=== PATIENT | female | born 1990 | race Caucasian/White ===

== ENCOUNTER → 2018-02-25 | Outpatient (CLI) | payer BC ==
[~2018-02-25] MED LIST: AZIT250 PO; CRUTCH3 USE; CRUTCH4 USE; DIPH50; DIPH50 PO; ESOM20; GABA300 PO; HYDACE5 PO; HYDACE7.5; HYDMOR2; HYDMOR2 PO; IBUP600 PO; IBUP800 PO; LORA1 PO; MAGCIT300 PO; MIDOL; NAPR500 PO; ONDA8ODT MM; OXYACE5T; OXYACE5T PO; OXYACE7.5T PO; OXYC10ER PO; PROACE100 PO; PROM25 PO; Percocet 5-3251 EACH PO; RXCLIN PO; RXONDA4ODT MM; RXOXYACE PO; TRAM50 PO; Zantac150 MG PO; Zofran Odt8 MG SL; [UNRECOGNIZED DRUG - CODE]
== END ==
LOC: LAB EV 18:02 → LAB SHORT 18:02
DX: N61.1 Abscess of the breast and nipple (principal)
CPT/HCPCS: 87070; 87075; 87205

== ENCOUNTER 2019-10-13 19:48 | Emergency (ER) | payer OTHER ==
[~2019-10-13] VITALS: Ht 170.2 cm; Wt 136.1 kg
[2019-10-13] MEDS ORDERED: PRENATAL TABLE1 EAC2 PO (20:09)
[2019-10-13] MEDS ORDERED: Zithromax250 MG PO (21:13)
== END 2019-10-13 21:45 | disposition home or self-care (01) ==
LOC: ER 19:48
DX: O91.212 Nonpurulent mastitis associated with pregnancy, second trimester (principal); Z88.0 Allergy status to penicillin; Z88.1 Allergy status to other antibiotic agents; Z3A.26 26 weeks gestation of pregnancy
CPT/HCPCS: 99282

== ENCOUNTER 2020-01-02 14:45 | Inpatient (IN) | payer BC, OTHER ==
[~2020-01-02] VITALS: Ht 170.2 cm; Wt 152.7 kg
[~2020-01-02 14:45] MED LIST changes: -BUSP10 PO; -ENOX40I SC; -FERSU300 PO; -LABE100 PO; -NIFE60ER PO
[2020-01-02 15:47] LABS: BASOPHILS ABSOLUTE AUTO 0.02 K/mm3 (0.00-0.23); BASOPHILS PERCENT AUTO 0 % (0-2); EOSINOPHILS PERCENT AUTO 1 % (0-6); Hematocrit 35.3 % (33.0-51.0); Hemoglobin 11.7 g/dL (11.5-16.0); IMMATURE GRAN ABSOLUTE AUTO 0.06 K/mm3 (0.00-0.10); IMMATURE GRAN PERCENT AUTO 0 % (0-1); LYMPHOCYTES ABSOLUTE AUTO 2.46 K/mm3 (0.84-5.20); LYMPHOCYTES PERCENT AUTO 16 % (21-46); MONOCYTES ABSOLUTE AUTO 0.88 K/mm3 (0.16-1.47); MONOCYTES PERCENT AUTO 6 % (4-13); Mean Corpuscular HGB 29.2 pg (26.0-34.0); Mean Corpuscular HGB Conc 33.1 g/dL (31.5-36.5); Mean Corpuscular Volume 88 fL (80-100); Mean Platelet Volume 11.4 fL (9.1-12.4); NEUTROPHILS ABSOLUTE AUTO 12.27 K/mm3 (1.96-9.15); NEUTROPHILS PERCENT AUTO 77 % (41-73); Platelet Count 234 K/mm3 (150-400); RDW Coefficient Variation 12.8 % (11.7-14.2); RDW Standard Deviation 41.1 fL (35.1-46.3); Red Blood Cell Count 4.01 M/mm3 (3.80-5.20); White Blood Cell Count 15.89 K/mm3 (4.00-11.30)
[2020-01-02 16:11] LABS: Alanine Aminotransfer (ALT/SGP 13 U/L (12-78); Albumin, Blood 2.3 g/dL (3.4-5.0); Albumin/Globulin Ratio 0.5 (0.8-1.8); Alk Phos 102 U/L (50-136); Anion Gap 8 mmol/L (6-16); Aspartate Aminotrans (AST/SGOT 12 U/L (12-37); Bilirubin, Total 0.1 mg/dL (0.1-1.0); Blood Urea Nitrogen 9 mg/dL (8-24); Bun/Creatinine Ratio 12.9 (12.0-20.0); CO2, Blood 22 mmol/L (21-32); Calcium, Blood 8.4 mg/dL (8.5-10.1); Chloride, Blood 108 mmol/L (98-108); Globulin, Blood 4.2 g/dL (2.2-4.0); Glomerular Filtration Rate >60 (60-); Glucose, Blood 102 mg/dL (70-99); Potassium, Blood 3.7 mmol/L (3.5-5.5); Sodium, Blood 138 mmol/L (136-145); Total Protein, Blood 6.5 g/dL (6.4-8.2)
--- NOTE | 2020-01-02 19:51 | NUR ---
SENT OVER FROM OFFICE AFTER NONREACTIVE NST. REACTIVE NST HER ON UNIT. BP'S ELEVATED, LABS DRAWN, ADMITTED FOR CYTOTEC INDUCTION
[2020-01-02] MEDS ORDERED: FERSU300 PO (20:24)
--- NOTE | 2020-01-03 07:03 | NUR ---
PT DECLINES BEDSIDE REPORT THIS MORNING, SHE WANTS TO SLEEP FOR A FEW MORE MINUTES IF SHE CAN
--- NOTE | 2020-01-03 10:39 | NUR ---
PER FLOOR RN, PT HAS BILATERAL MASTITIS, PER CARETAKER GROUNDS ULTRASOUND REVEALED BILATERAL CELLULITIS. RN ROUNDED TO TALK WITH PT ABOUT BRF PLAN. RN INSTRUCTED PT IN MAKING SURE LATCH IS CORRECT AND BREAST MASSAGE WHILE BRF AND IN WARM SHOWER. MOTHER VERBALIZED UNDERSTANDING. SO BRINGING IN PUMP TO HAVE ON HAND IF NEEDED. PT INSTRUCTED TO FOCUS ON CORRECT AND EFFECTIVE LATCHING OF NB BEFORE PUMPING TO MAKE SURE PROLONGED ENGORGEMENT DOES NOT ULTIMATELY AFFECT BRF. RN WILL ROUND AGAIN AFTER OF NB TO HELP/DEMO WITH CORRECT LATCHING AND POSITIONING.
[2020-01-03 20:34] LABS: Vancomycin, Trough 17.8 ug/mL (5.0-10.0)
[2020-01-03 21:31] LABS: BASOPHILS ABSOLUTE AUTO 0.03 K/mm3 (0.00-0.23); BASOPHILS PERCENT AUTO 0 % (0-2); EOSINOPHILS ABSOLUTE AUTO 0.13 K/mm3 (0.00-0.68); EOSINOPHILS PERCENT AUTO 1 % (0-6); Hematocrit 35.8 % (33.0-51.0); Hemoglobin 11.7 g/dL (11.5-16.0); IMMATURE GRAN ABSOLUTE AUTO 0.06 K/mm3 (0.00-0.10); IMMATURE GRAN PERCENT AUTO 0 % (0-1); LYMPHOCYTES ABSOLUTE AUTO 2.54 K/mm3 (0.84-5.20); LYMPHOCYTES PERCENT AUTO 17 % (21-46); MONOCYTES ABSOLUTE AUTO 0.92 K/mm3 (0.16-1.47); MONOCYTES PERCENT AUTO 6 % (4-13); Mean Corpuscular HGB 29.2 pg (26.0-34.0); Mean Corpuscular HGB Conc 32.7 g/dL (31.5-36.5); Mean Corpuscular Volume 89 fL (80-100); Mean Platelet Volume 12.2 fL (9.1-12.4); NEUTROPHILS ABSOLUTE AUTO 11.47 K/mm3 (1.96-9.15); NEUTROPHILS PERCENT AUTO 76 % (41-73); Platelet Count 240 K/mm3 (150-400); RDW Coefficient Variation 13.1 % (11.7-14.2); RDW Standard Deviation 42.8 fL (35.1-46.3); Red Blood Cell Count 4.01 M/mm3 (3.80-5.20); White Blood Cell Count 15.15 K/mm3 (4.00-11.30)
[2020-01-05 05:23] LABS: BASOPHILS ABSOLUTE AUTO 0.05 K/mm3 (0.00-0.23); BASOPHILS PERCENT AUTO 0 % (0-2); EOSINOPHILS ABSOLUTE AUTO 0.01 K/mm3 (0.00-0.68); EOSINOPHILS PERCENT AUTO 0 % (0-6); Hemoglobin 10.6 g/dL (11.5-16.0); IMMATURE GRAN ABSOLUTE AUTO 0.25 K/mm3 (0.00-0.10); IMMATURE GRAN PERCENT AUTO 1 % (0-1); LYMPHOCYTES ABSOLUTE AUTO 1.64 K/mm3 (0.84-5.20); LYMPHOCYTES PERCENT AUTO 6 % (21-46); MONOCYTES ABSOLUTE AUTO 1.87 K/mm3 (0.16-1.47); MONOCYTES PERCENT AUTO 6 % (4-13); Mean Corpuscular HGB 29.4 pg (26.0-34.0); Mean Corpuscular HGB Conc 33.1 g/dL (31.5-36.5); Mean Corpuscular Volume 89 fL (80-100); Mean Platelet Volume 11.2 fL (9.1-12.4); NEUTROPHILS ABSOLUTE AUTO 26.17 K/mm3 (1.96-9.15); NEUTROPHILS PERCENT AUTO 87 % (41-73); Platelet Count 217 K/mm3 (150-400); RDW Standard Deviation 42.2 fL (35.1-46.3); Red Blood Cell Count 3.61 M/mm3 (3.80-5.20); White Blood Cell Count 29.99 K/mm3 (4.00-11.30)
--- NOTE | 2020-01-05 07:58 | NUR ---
BREAST EXAMINATION PT HAS LEFT BREAST SWELLING ON INTERIOR PORTION PT HAS BEEN MANAGING CELLULITIS IN BILATERAL BREASTS WITH JAYNE PARKER NO REDNESS NOTED BUT DOES HAV 5CM CIRCULAR AREA OF SLIGHTY FIRM TISSUE
[2020-01-05 10:10] LABS: International Normalized Ratio 0.91; Prothrombin Time Results 9.8 Sec (9.7-11.5)
[2020-01-06 05:30] LABS: BASOPHILS ABSOLUTE AUTO 0.03 K/mm3 (0.00-0.23); BASOPHILS PERCENT AUTO 0 % (0-2); EOSINOPHILS PERCENT AUTO 2 % (0-6); Hematocrit 32.7 % (33.0-51.0); Hemoglobin 10.7 g/dL (11.5-16.0); IMMATURE GRAN ABSOLUTE AUTO 0.13 K/mm3 (0.00-0.10); IMMATURE GRAN PERCENT AUTO 1 % (0-1); LYMPHOCYTES PERCENT AUTO 24 % (21-46); MONOCYTES ABSOLUTE AUTO 1.38 K/mm3 (0.16-1.47); MONOCYTES PERCENT AUTO 8 % (4-13); Mean Corpuscular HGB 29.6 pg (26.0-34.0); Mean Corpuscular HGB Conc 32.7 g/dL (31.5-36.5); Mean Corpuscular Volume 91 fL (80-100); Mean Platelet Volume 11.4 fL (9.1-12.4); NEUTROPHILS ABSOLUTE AUTO 10.88 K/mm3 (1.96-9.15); NEUTROPHILS PERCENT AUTO 65 % (41-73); Platelet Count 223 K/mm3 (150-400); RDW Coefficient Variation 13.5 % (11.7-14.2); RDW Standard Deviation 44.3 fL (35.1-46.3); Red Blood Cell Count 3.61 M/mm3 (3.80-5.20); White Blood Cell Count 16.82 K/mm3 (4.00-11.30)
[2020-01-06 05:44] LABS: International Normalized Ratio 0.96; Prothrombin Time Results 10.3 Sec (9.7-11.5)
--- NOTE | 2020-01-06 16:45 | NUR ---
ASSUMED CARE OF PT. PT SLEEPING, NB AT NURSES STATION.
[2020-01-07 04:28] LABS: International Normalized Ratio 1.61; Prothrombin Time Results 16.8 Sec (9.7-11.5)
[2020-01-07] MEDS ORDERED: LABE100 PO (10:53)
[2020-01-07] MEDS ORDERED: BUSP10 PO (10:54)
[2020-01-07] MEDS ORDERED: NIFE60ER PO (10:54)
[2020-01-07] MEDS ORDERED: ENOX40I SC (10:55)
== END 2020-01-07 12:57 | disposition home or self-care (01) | DRG 807 ==
LOC: BC 14:45 → OBS 14:45 → BC 18:33
PROVIDERS: Advanced Practice Midwife; ADMIT Nurse Practitioner Obstetrics & Gynecology
PROC: 3E0P7VZ Introduction of Hormone into Female Reproductive, Via Natural or Artificial Opening (ICD-10-PCS; 2020-01-02)
PROC: 3E033VJ Introduction of Other Hormone into Peripheral Vein, Percutaneous Approach (ICD-10-PCS; 2020-01-03)
PROC: 10907ZC Drainage of Amniotic Fluid, Therapeutic from Products of Conception, Via Natural or Artificial Opening (ICD-10-PCS; 2020-01-03)
PROC: 3E0R3BZ Introduction of Anesthetic Agent into Spinal Canal, Percutaneous Approach (ICD-10-PCS; 2020-01-03)
PROC: 10E0XZZ Delivery of Products of Conception, External Approach (ICD-10-PCS; principal; 2020-01-04)
PROC: 0HQ9XZZ Repair Perineum Skin, External Approach (ICD-10-PCS; 2020-01-04)
DX: O13.4 Gestational [pregnancy-induced] hypertension without significant proteinuria, complicating childbirth (principal); Z37.0 Single live birth; O99.824 Streptococcus B carrier state complicating childbirth; Z3A.37 37 weeks gestation of pregnancy; O70.0 First degree perineal laceration during delivery; O76 Abnormality in fetal heart rate and rhythm complicating labor and delivery
CPT/HCPCS: 36415; 51702; 80053; 80202; 85025; 85610; 86850; 86900; 86901; A9270; C9113; J1650; J1885; J2001; J2405; J2590; J3010; J3370; J7050; J7120

== ENCOUNTER → 2020-01-02 | Outpatient (CLI) | payer BC, OTHER ==
[~2020-01-02] MED LIST changes: +BUSP10 PO; +ENOX40I SC; +FERSU300 PO; +LABE100 PO; +NIFE60ER PO; +PRENATAL TABLE1 EAC2 PO; +Zithromax250 MG PO
[2020-01-02 17:27] LABS: Creatinine Urine 93.4 mg/dL (27.00-270.00); Protein, Urine Quantitative 19.1 mg/dL (0.0-11.9)
== END ==
LOC: LAB 16:48 → LAB SHORT 16:48
PROVIDERS: Advanced Practice Midwife
DX: O13.3 Gestational [pregnancy-induced] hypertension without significant proteinuria, third trimester (principal)
CPT/HCPCS: 81050; 82570; 84156

== ENCOUNTER → 2020-06-07 | Outpatient (CLI) | payer OTHER, BC ==
[~2020-06-07] MED LIST changes: +BUSP10 PO; +ENOX40I SC; +FERSU300 PO; +LABE100 PO; +NIFE60ER PO
== END | disposition home or self-care (01) ==
LOC: LAB SHORT 16:30 → LAB EV 16:30
DX: R05 Cough (principal); Z20.828 Contact with and (suspected) exposure to other viral communicable diseases
CPT/HCPCS: U0003

== ENCOUNTER 2021-01-23 22:28 | Emergency (ER) | payer OTHER, BC ==
[~2021-01-23] VITALS: Ht 170.2 cm; Wt 97.5 kg
[2021-01-23] MEDS ORDERED: Cyclobenzaprine5 MG PO (23:42)
== END 2021-01-23 23:58 | disposition home or self-care (01) ==
LOC: ER 22:28
DX: M54.2 Cervicalgia (principal); Z88.0 Allergy status to penicillin; Z88.1 Allergy status to other antibiotic agents; Z91.018 Allergy to other foods
CPT/HCPCS: 99283; A9270

== ENCOUNTER 2021-04-14 22:48 | Emergency (ER) | payer BC, OTHER ==
[~2021-04-14] VITALS: Ht 170.2 cm; Wt 108.9 kg
[~2021-04-14 22:48] MED LIST changes: +Cyclobenzaprine5 MG PO
[2021-04-14 23:55] LABS: Hematocrit 34.8 % (33.0-51.0); Hemoglobin 11.6 g/dL (11.5-16.0); Mean Corpuscular HGB 28.2 pg (26.0-34.0); Mean Corpuscular HGB Conc 33.3 g/dL (31.5-36.5); Mean Corpuscular Volume 85 fL (80-100); Platelet Count 271 K/mm3 (150-400); RDW Coefficient Variation 13.2 % (11.7-14.2); RDW Standard Deviation 41.1 fL (35.1-46.3); Red Blood Cell Count 4.12 M/mm3 (3.80-5.20); White Blood Cell Count 16.11 K/mm3 (4.00-11.30)
[2021-04-15 00:20] LABS: Alanine Aminotransfer (ALT/SGP 17 U/L (12-78); Albumin/Globulin Ratio 0.7 (0.8-1.8); Alk Phos 84 U/L (50-136); Anion Gap 8 mmol/L (6-16); Aspartate Aminotrans (AST/SGOT 11 U/L (12-37); Bilirubin, Total 0.1 mg/dL (0.1-1.0); Blood Urea Nitrogen 11 mg/dL (8-24); Bun/Creatinine Ratio 19.7 (12.0-20.0); CO2, Blood 21 mmol/L (21-32); Calcium, Blood 7.8 mg/dL (8.5-10.1); Chloride, Blood 108 mmol/L (98-108); Creatinine, Blood 0.56 mg/dL (0.40-1.00); Globulin, Blood 4.3 g/dL (2.2-4.0); Glomerular Filtration Rate >60 (60-); Glucose, Blood 91 mg/dL (70-99); Potassium, Blood 4.2 mmol/L (3.5-5.5); Sodium, Blood 137 mmol/L (136-145); Total Protein, Blood 7.3 g/dL (6.4-8.2)
[2021-04-15 00:22] LABS: BAND PERCENT MAN 9 % (0-8); BASOPHILS PERCENT MAN 0 % (0-2); EOSINOPHILS PERCENT MAN 0 % (0-6); LYMPHOCYTES ABSOLUTE MAN 5.47 K/mm3 (0.84-5.20); LYMPHOCYTES PERCENT MAN 34 % (21-46); MONOCYTES ABSOLUTE MAN 0.64 K/mm3 (0.16-1.47); MONOCYTES PERCENT MAN 4 % (4-13); MYELOCYTE ABSOLUTE MAN 0.16 K/mm3 (0.00-0.00); MYELOCYTE PERCENT MAN 1 % (0-0); NEUTROPHILS ABSOLUTE MAN 9.82 K/mm3 (1.96-9.15); SEG NEUTROPHILS PERCENT MAN 52 % (41-73); TOTAL CELLS COUNTED 100
[2021-04-15 00:52] LABS: Beta HCG, Quantitative, Serum 5628 mIU/mL (0-3)
== END 2021-04-15 01:49 | disposition home or self-care (01) ==
LOC: ER 22:48
PROVIDERS: Physician Assistant
DX: O99.891 Other specified diseases and conditions complicating pregnancy (principal); R10.9 Unspecified abdominal pain; Z3A.19 19 weeks gestation of pregnancy
CPT/HCPCS: 36415; 76815; 80053; 84702; 85025; 99284-25

== ENCOUNTER → 2021-08-05 | Outpatient (CLI) | payer BC, OTHER ==
[2021-08-05 10:01] LABS: BASOPHILS ABSOLUTE AUTO 0.03 K/mm3 (0.00-0.23); BASOPHILS PERCENT AUTO 0 % (0-2); EOSINOPHILS ABSOLUTE AUTO 0.29 K/mm3 (0.00-0.68); EOSINOPHILS PERCENT AUTO 2 % (0-6); Hematocrit 33.8 % (33.0-51.0); Hemoglobin 11.2 g/dL (11.5-16.0); IMMATURE GRAN ABSOLUTE AUTO 0.11 K/mm3 (0.00-0.10); IMMATURE GRAN PERCENT AUTO 1 % (0-1); LYMPHOCYTES ABSOLUTE AUTO 2.84 K/mm3 (0.84-5.20); LYMPHOCYTES PERCENT AUTO 20 % (21-46); MONOCYTES ABSOLUTE AUTO 0.93 K/mm3 (0.16-1.47); MONOCYTES PERCENT AUTO 7 % (4-13); Mean Corpuscular HGB 28.6 pg (26.0-34.0); Mean Corpuscular HGB Conc 33.1 g/dL (31.5-36.5); Mean Corpuscular Volume 86 fL (80-100); Mean Platelet Volume 11.1 fL (9.1-12.4); NEUTROPHILS ABSOLUTE AUTO 9.69 K/mm3 (1.96-9.15); NEUTROPHILS PERCENT AUTO 70 % (41-73); Platelet Count 247 K/mm3 (150-400); RDW Coefficient Variation 12.5 % (11.7-14.2); RDW Standard Deviation 39.6 fL (35.1-46.3); Red Blood Cell Count 3.92 M/mm3 (3.80-5.20); White Blood Cell Count 13.89 K/mm3 (4.00-11.30)
[2021-08-05 10:29] LABS: Creatinine Urine 99.3 mg/dL (27.00-270.00); Protein, Urine Quantitative 17.9 mg/dL (0.0-11.9)
[2021-08-05 11:01] LABS: Alanine Aminotransfer (ALT/SGP 12 U/L (12-78); Albumin, Blood 2.4 g/dL (3.4-5.0); Albumin/Globulin Ratio 0.5 (0.8-1.8); Alk Phos 115 U/L (50-136); Anion Gap 8 mmol/L (6-16); Aspartate Aminotrans (AST/SGOT 11 U/L (12-37); Bilirubin, Total 0.3 mg/dL (0.1-1.0); Blood Urea Nitrogen 11 mg/dL (8-24); Bun/Creatinine Ratio 15.4 (12.0-20.0); CO2, Blood 23 mmol/L (21-32); Chloride, Blood 106 mmol/L (98-108); Creatinine, Blood 0.72 mg/dL (0.40-1.00); Globulin, Blood 4.8 g/dL (2.2-4.0); Glomerular Filtration Rate >60 (60-); Glucose, Blood 89 mg/dL (70-99); Potassium, Blood 3.7 mmol/L (3.5-5.5); Sodium, Blood 137 mmol/L (136-145); Total Protein, Blood 7.2 g/dL (6.4-8.2)
== END | disposition home or self-care (01) ==
LOC: LAB SHORT 08:33 → LAB 08:33
PROVIDERS: Nurse Practitioner Obstetrics & Gynecology
DX: O11.9 Pre-existing hypertension with pre-eclampsia, unspecified trimester (principal)
CPT/HCPCS: 36415; 80053; 81050; 82570; 84156; 85025; 85520

== ENCOUNTER 2021-08-17 20:04 | Inpatient (IN) | payer BC, OTHER ==
[~2021-08-17] VITALS: Ht 170.2 cm; Wt 152.2 kg
[2021-08-17 21:57] LABS: BASOPHILS ABSOLUTE AUTO 0.02 K/mm3 (0.00-0.23); BASOPHILS PERCENT AUTO 0 % (0-2); EOSINOPHILS PERCENT AUTO 2 % (0-6); Hematocrit 30.7 % (33.0-51.0); Hemoglobin 10.4 g/dL (11.5-16.0); IMMATURE GRAN ABSOLUTE AUTO 0.11 K/mm3 (0.00-0.10); IMMATURE GRAN PERCENT AUTO 1 % (0-1); LYMPHOCYTES ABSOLUTE AUTO 3.31 K/mm3 (0.84-5.20); LYMPHOCYTES PERCENT AUTO 19 % (21-46); MONOCYTES ABSOLUTE AUTO 1.05 K/mm3 (0.16-1.47); MONOCYTES PERCENT AUTO 6 % (4-13); Mean Corpuscular HGB 28.6 pg (26.0-34.0); Mean Corpuscular HGB Conc 33.9 g/dL (31.5-36.5); Mean Corpuscular Volume 84 fL (80-100); Mean Platelet Volume 11.1 fL (9.1-12.4); NEUTROPHILS ABSOLUTE AUTO 12.93 K/mm3 (1.96-9.15); NEUTROPHILS PERCENT AUTO 73 % (41-73); Platelet Count 252 K/mm3 (150-400); RDW Coefficient Variation 12.4 % (11.7-14.2); RDW Standard Deviation 37.6 fL (35.1-46.3); Red Blood Cell Count 3.64 M/mm3 (3.80-5.20); White Blood Cell Count 17.72 K/mm3 (4.00-11.30)
[2021-08-17 22:15] LABS: International Normalized Ratio 0.89; Prothrombin Time Results 9.4 Sec (9.7-11.5)
[2021-08-17 22:21] LABS: Alanine Aminotransfer (ALT/SGP 13 U/L (12-78); Albumin, Blood 2.3 g/dL (3.4-5.0); Albumin/Globulin Ratio 0.5 (0.8-1.8); Alk Phos 113 U/L (50-136); Anion Gap 7 mmol/L (6-16); Aspartate Aminotrans (AST/SGOT 11 U/L (12-37); Bilirubin, Total 0.1 mg/dL (0.1-1.0); Blood Urea Nitrogen 10 mg/dL (8-24); Bun/Creatinine Ratio 14.6 (12.0-20.0); CO2, Blood 21 mmol/L (21-32); Calcium, Blood 8.6 mg/dL (8.5-10.1); Chloride, Blood 109 mmol/L (98-108); Creatinine, Blood 0.68 mg/dL (0.40-1.00); Globulin, Blood 4.5 g/dL (2.2-4.0); Glomerular Filtration Rate >60 (60-); Glucose, Blood 113 mg/dL (70-99); Potassium, Blood 3.7 mmol/L (3.5-5.5); Sodium, Blood 137 mmol/L (136-145); Total Protein, Blood 6.8 g/dL (6.4-8.2)
[2021-08-17] MEDS ORDERED: ENOX100I SC (22:26)
[2021-08-17] MEDS ORDERED: Labetalol HCl300 MG PO (22:27)
[2021-08-17 22:41] LABS: SARS-Cov-2 (COVID-19) PCR, MMC NEGATIVE (NEGATIVE)
--- NOTE | 2021-08-18 15:14 | NUR ---
IV PLACED BY Isabelle GRECO CNM
--- NOTE | 2021-08-19 20:49 | NUR ---
rn into room approx 2030 to retake pt's bp after pt got done feeding nb. rn walked into pt crying and stating she is frustrated regarding nb being sleepy at breast and not wanting to suck. pt states she is afraid nb is not getting enough to eat and is worried. rn reassured pt that nb will get the hang of it, persistence is the hsieh. pt brought in copious amounts of ebm from home. pt and fob finger feeding nb after attempting to breast feed. fob finger feeding right now 4cc. pt still teary eyed. rn reassured pt everything will work out and just to keep offering nb the breast. fob brought food in for pt. pt eating now. rn will retake bp after pt eats and calms down.
[2021-08-20 05:30] LABS: Hematocrit 28.4 % (33.0-51.0); Hemoglobin 9.4 g/dL (11.5-16.0); Mean Corpuscular HGB 29.2 pg (26.0-34.0); Mean Corpuscular HGB Conc 33.1 g/dL (31.5-36.5); Mean Corpuscular Volume 88 fL (80-100); Mean Platelet Volume 10.9 fL (9.1-12.4); Platelet Count 221 K/mm3 (150-400); RDW Coefficient Variation 12.9 % (11.7-14.2); RDW Standard Deviation 41.2 fL (35.1-46.3); Red Blood Cell Count 3.22 M/mm3 (3.80-5.20); White Blood Cell Count 16.68 K/mm3 (4.00-11.30)
[2021-08-20 05:43] LABS: International Normalized Ratio 0.88; Prothrombin Time Results 9.3 Sec (9.7-11.5)
--- NOTE | 2021-08-20 06:01 | NUR ---
MAGNESIUM 2G OFF AT 0325.
[2021-08-20 06:05] LABS: Alanine Aminotransfer (ALT/SGP 13 U/L (12-78); Albumin, Blood 1.9 g/dL (3.4-5.0); Albumin/Globulin Ratio 0.5 (0.8-1.8); Alk Phos 88 U/L (50-136); Anion Gap 7 mmol/L (6-16); Aspartate Aminotrans (AST/SGOT 13 U/L (12-37); Bilirubin, Total <0.1 mg/dL (0.1-1.0); Blood Urea Nitrogen 9 mg/dL (8-24); Bun/Creatinine Ratio 12.2 (12.0-20.0); CO2, Blood 22 mmol/L (21-32); Calcium, Blood 7.6 mg/dL (8.5-10.1); Chloride, Blood 108 mmol/L (98-108); Creatinine, Blood 0.74 mg/dL (0.40-1.00); Globulin, Blood 4.2 g/dL (2.2-4.0); Glomerular Filtration Rate >60 (60-); Glucose, Blood 95 mg/dL (70-99); Potassium, Blood 3.5 mmol/L (3.5-5.5); Sodium, Blood 137 mmol/L (136-145); Total Protein, Blood 6.1 g/dL (6.4-8.2)
[2021-08-21 06:09] LABS: International Normalized Ratio 1.42; Prothrombin Time Results 14.6 Sec (9.7-11.5)
[2021-08-21] MEDS ORDERED: WARF10 PO (10:05)
[2021-08-21] MEDS ORDERED: ENOX80I SC (10:05)
[2021-08-21] MEDS ORDERED: LABE200 PO (10:06)
[2021-08-21] MEDS ORDERED: NIFE60ER PO (10:06)
== END 2021-08-21 12:05 | disposition home or self-care (01) | DRG 807 ==
LOC: OBS 20:04 → BC 20:05 → OBS 20:11 → BC 20:11
PROVIDERS: ADMIT Nurse Practitioner Obstetrics & Gynecology
PROC: 10E0XZZ Delivery of Products of Conception, External Approach (ICD-10-PCS; principal; 2021-08-19)
PROC: 3E0R3BZ Introduction of Anesthetic Agent into Spinal Canal, Percutaneous Approach (ICD-10-PCS; 2021-08-19)
PROC: 00HU33Z Insertion of Infusion Device into Spinal Canal, Percutaneous Approach (ICD-10-PCS; 2021-08-19)
DX: O11.4 Pre-existing hypertension with pre-eclampsia, complicating childbirth (principal); Z37.0 Single live birth; O10.92 Unspecified pre-existing hypertension complicating childbirth; Z3A.37 37 weeks gestation of pregnancy; Z20.822 Contact with and (suspected) exposure to COVID-19; O99.214 Obesity complicating childbirth; O99.344 Other mental disorders complicating childbirth; O99.824 Streptococcus B carrier state complicating childbirth; E66.01 Morbid (severe) obesity due to excess calories; F41.1 Generalized anxiety disorder; F32.A Depression, unspecified; Z88.0 Allergy status to penicillin; Z88.1 Allergy status to other antibiotic agents; Z79.899 Other long term (current) drug therapy; Z86.718 Personal history of other venous thrombosis and embolism
CPT/HCPCS: 36415; 51702; 80053; 85025; 85027; 85610; 85730; 86850; 86900; 86901; A9270; J1200; J1650; J1885; J2001; J2590; J3010; J3370; J3475; J7050; J7120; U0004

== ENCOUNTER → 2022-09-22 | Outpatient (CLI) | payer OTHER, BC ==
[~2022-09-22] MED LIST changes: +ENOX100I SC; +ENOX80I SC; +LABE200 PO; +Labetalol HCl300 MG PO; +WARF10 PO
[2022-09-22 13:54] LABS: Protein, Urine Random 16.3 mg/dL (0.0-11.9); Protein/Creat Ratio, Ur Random 0.1
== END | disposition home or self-care (01) ==
LOC: LAB 09:00 → LAB SHORT 09:00
PROVIDERS: Nurse Practitioner Family
DX: O13.1 Gestational [pregnancy-induced] hypertension without significant proteinuria, first trimester (principal)
CPT/HCPCS: 82570; 84156

== ENCOUNTER 2022-12-24 16:55 | Observation (INO) | payer OTHER, BC ==
[~2022-12-24] VITALS: Ht 172.7 cm; Wt 133.8 kg
[2022-12-24 17:42] LABS: BASOPHILS ABSOLUTE AUTO 0.04 K/mm3 (0.00-0.23); BASOPHILS PERCENT AUTO 0 % (0-2); EOSINOPHILS ABSOLUTE AUTO 0.35 K/mm3 (0.00-0.68); EOSINOPHILS PERCENT AUTO 2 % (0-6); Hemoglobin 12.3 g/dL (11.5-16.0); IMMATURE GRAN ABSOLUTE AUTO 0.15 K/mm3 (0.00-0.10); IMMATURE GRAN PERCENT AUTO 1 % (0-1); LYMPHOCYTES PERCENT AUTO 24 % (21-46); MONOCYTES ABSOLUTE AUTO 1.02 K/mm3 (0.16-1.47); MONOCYTES PERCENT AUTO 6 % (4-13); Mean Corpuscular HGB 28.7 pg (26.0-34.0); Mean Corpuscular HGB Conc 34.2 g/dL (31.5-36.5); Mean Corpuscular Volume 84 fL (80-100); Mean Platelet Volume 9.9 fL (9.1-12.4); NEUTROPHILS ABSOLUTE AUTO 12.47 K/mm3 (1.96-9.15); NEUTROPHILS PERCENT AUTO 68 % (41-73); Platelet Count 264 K/mm3 (150-400); RDW Coefficient Variation 13.5 % (11.7-14.2); RDW Standard Deviation 41.9 fL (35.1-46.3); Red Blood Cell Count 4.29 M/mm3 (3.80-5.20); White Blood Cell Count 18.33 K/mm3 (4.00-11.30)
[2022-12-24 18:09] LABS: Magnesium, Blood 1.9 mg/dL (1.6-2.4); Uric Acid, Blood 3.4 mg/dL (2.6-6.0)
[2022-12-24 18:13] LABS: Albumin, Blood 2.9 g/dL (3.4-5.0); Albumin/Globulin Ratio 0.7 (0.8-1.8); Bilirubin, Total 0.1 mg/dL (0.1-1.0); Bun/Creatinine Ratio 17.6 (12.0-20.0); Calcium, Blood 8.8 mg/dL (8.5-10.1); Creatinine, Blood 0.51 mg/dL (0.40-1.00); Globulin, Blood 4.4 g/dL (2.2-4.0); Potassium, Blood 3.8 mmol/L (3.5-5.5); Total Protein, Blood 7.3 g/dL (6.4-8.2)
== END 2022-12-24 18:30 | disposition home or self-care (01) ==
LOC: ER 16:55 → BC 17:22
PROVIDERS: Physician Assistant; ADMIT Nurse Practitioner Obstetrics & Gynecology
DX: O99.891 Other specified diseases and conditions complicating pregnancy (principal); R03.0 Elevated blood-pressure reading, without diagnosis of hypertension; R51.9 Headache, unspecified; H53.8 Other visual disturbances; Z3A.23 23 weeks gestation of pregnancy
CPT/HCPCS: 36415; 80053; 81003; 83615; 83735; 84550; 85025; 99214

== ENCOUNTER → 2023-03-02 | Outpatient (CLI) | payer OTHER, BC ==
[2023-03-02 10:19] LABS: BASOPHILS ABSOLUTE AUTO 0.04 K/mm3 (0.00-0.23); BASOPHILS PERCENT AUTO 0 % (0-2); EOSINOPHILS ABSOLUTE AUTO 0.26 K/mm3 (0.00-0.68); EOSINOPHILS PERCENT AUTO 2 % (0-6); Hematocrit 33.1 % (33.0-51.0); Hemoglobin 10.9 g/dL (11.5-16.0); IMMATURE GRAN ABSOLUTE AUTO 0.08 K/mm3 (0.00-0.10); IMMATURE GRAN PERCENT AUTO 1 % (0-1); LYMPHOCYTES ABSOLUTE AUTO 3.09 K/mm3 (0.84-5.20); LYMPHOCYTES PERCENT AUTO 22 % (21-46); MONOCYTES ABSOLUTE AUTO 0.89 K/mm3 (0.16-1.47); MONOCYTES PERCENT AUTO 6 % (4-13); Mean Corpuscular HGB 28.2 pg (26.0-34.0); Mean Corpuscular HGB Conc 32.9 g/dL (31.5-36.5); Mean Corpuscular Volume 86 fL (80-100); Mean Platelet Volume 11.2 fL (9.1-12.4); NEUTROPHILS ABSOLUTE AUTO 9.77 K/mm3 (1.96-9.15); NEUTROPHILS PERCENT AUTO 69 % (41-73); Platelet Count 237 K/mm3 (150-400); RDW Coefficient Variation 12.3 % (11.7-14.2); RDW Standard Deviation 38.2 fL (35.1-46.3); Red Blood Cell Count 3.86 M/mm3 (3.80-5.20); White Blood Cell Count 14.13 K/mm3 (4.00-11.30)
[2023-03-02 12:24] LABS: Albumin, Blood 2.3 g/dL (3.4-5.0); Albumin/Globulin Ratio 0.6 (0.8-1.8); Bilirubin, Total 0.2 mg/dL (0.1-1.0); Calcium, Blood 8.7 mg/dL (8.5-10.1); Creatinine, Blood 0.56 mg/dL (0.40-1.00); Potassium, Blood 3.7 mmol/L (3.5-5.5); Total Protein, Blood 6.3 g/dL (6.4-8.2)
== END | disposition home or self-care (01) ==
LOC: LAB SHORT 08:22 → LAB 08:22
PROVIDERS: Nurse Practitioner Obstetrics & Gynecology
DX: O10.013 Pre-existing essential hypertension complicating pregnancy, third trimester (principal)
CPT/HCPCS: 36415; 80053; 81050; 82570; 84156; 85025

== ENCOUNTER 2023-03-10 17:08 | Inpatient (IN) | payer OTHER, BC ==
[2023-03-10] VITALS (16 sets, daily range): BP systolic 114–199; BP diastolic 56–91
[~2023-03-10] VITALS: Ht 170.2 cm; Wt 151.0 kg
[2023-03-10 19:00] LABS: Creatinine, Urine Random 82.4 mg/dL (27.00-270.00); Protein, Urine Random 16.8 mg/dL (0.0-11.9); Protein/Creat Ratio, Ur Random 0.2
[2023-03-10 19:55] LABS: BASOPHILS ABSOLUTE AUTO 0.05 K/mm3 (0.00-0.23); BASOPHILS PERCENT AUTO 0 % (0-2); EOSINOPHILS ABSOLUTE AUTO 0.32 K/mm3 (0.00-0.68); EOSINOPHILS PERCENT AUTO 2 % (0-6); Hematocrit 34.2 % (33.0-51.0); Hemoglobin 11.4 g/dL (11.5-16.0); IMMATURE GRAN ABSOLUTE AUTO 0.12 K/mm3 (0.00-0.10); IMMATURE GRAN PERCENT AUTO 1 % (0-1); LYMPHOCYTES ABSOLUTE AUTO 4.25 K/mm3 (0.84-5.20); LYMPHOCYTES PERCENT AUTO 23 % (21-46); MONOCYTES ABSOLUTE AUTO 1.04 K/mm3 (0.16-1.47); MONOCYTES PERCENT AUTO 6 % (4-13); Mean Corpuscular HGB 28.2 pg (26.0-34.0); Mean Corpuscular HGB Conc 33.3 g/dL (31.5-36.5); Mean Corpuscular Volume 85 fL (80-100); Mean Platelet Volume 11.4 fL (9.1-12.4); NEUTROPHILS ABSOLUTE AUTO 12.43 K/mm3 (1.96-9.15); NEUTROPHILS PERCENT AUTO 68 % (41-73); Platelet Count 224 K/mm3 (150-400); RDW Coefficient Variation 12.3 % (11.7-14.2); RDW Standard Deviation 37.2 fL (35.1-46.3); Red Blood Cell Count 4.04 M/mm3 (3.80-5.20); White Blood Cell Count 18.21 K/mm3 (4.00-11.30)
[2023-03-10 20:23] LABS: Albumin, Blood 2.5 g/dL (3.4-5.0); Albumin/Globulin Ratio 0.6 (0.8-1.8); Bilirubin, Total 0.2 mg/dL (0.1-1.0); Bun/Creatinine Ratio 13.2 (12.0-20.0); Calcium, Blood 8.8 mg/dL (8.5-10.1); Creatinine, Blood 0.6 mg/dL (0.40-1.00); Globulin, Blood 4.3 g/dL (2.2-4.0); Potassium, Blood 3.4 mmol/L (3.5-5.5); Total Protein, Blood 6.8 g/dL (6.4-8.2)
[2023-03-10] MEDS ORDERED: LABE100 PO (23:08)
[2023-03-10] MEDS ORDERED: ADALAT CC60 MG PO (23:09)
[2023-03-10] MEDS ORDERED: ENOX100I SC (23:10)
[2023-03-11] VITALS (25 sets, daily range): BP systolic 115–184; BP diastolic 57–86
--- NOTE | 2023-03-11 03:53 | NUR ---
PATIENT STATES THAT HER HEADACHE IS GETTING BETTER. PLANS TO SLEEP.
--- NOTE | 2023-03-11 09:15 | NUR ---
DISCUSSED WITH ULYSSES ON MAGNESIUM ORDERS, ON HOLD AT THIS TIME PER HER REVIEW WITH MFPily IN THE PAST, THE PATIENT REACTS WELL TO MEDICATION AND WILL CONTINUE TO OBSERVE, IF CONDITION GETS WORSE WILL START MAGNESIUM, NST WAS REACTIVE THIS MORNING HAVE TO HOLD MONITOR IN PLACE AT HARD ANGLE ON PATIENT, PATIENT PREFERS TO NOT HAVE CONTINUOUS MONITORING AT THIS TIME,
--- NOTE | 2023-03-11 11:31 | NUR ---
SEE HOURLY MANUAL B/P ON [facility] SYSTEM
--- NOTE | 2023-03-11 11:49 | NUR ---
PATIENT STATES HEADACHE IS WORSE, STATES WHEN SHE OPENS HER EYES SHE SEES SPOTS AND FLASHES, HEADACHE IS IN FRONT, STATES NAUSEA BUT TRYING TO EAT, STATES HX OF MIGRAINES BUT THIS FEELS DIFFERENT, DENIES EPIGASTRIC PAIN AND LUNGS ARE CLEAR NO CHANGE IN DTRs, NO CLONUS, STATES SHE WANTS THE BABY TO BE IN LONGER BYT DOESNT NO HOW MUCH LONGER SHE CAN DEAL WITH THE PAIN OF THE HEADACHE, FIOROCET GIVE X2 ONE HOUR APART, WILL CONTINUE TO OBSERVE, IF NO CHANGE IN PAIN WILL TREAT WITH ANOTHER DOSE OF PANKAJ AND GIVE LABATELOL 30 MIN EARLY,
--- NOTE | 2023-03-11 13:31 | NUR ---
B/P 121/66 LABETALOL GIVEN FOR B/P OVER 120 SYSTOLIC PER ORDERS
--- NOTE | 2023-03-11 15:55 | NUR ---
HEADACHE NO CHANGE PATIENT TOLERATING OK, WILL MEDICATE WITH PANKAJ IN ONE HOUR
--- NOTE | 2023-03-11 17:35 | NUR ---
STATES NO CHANGE IN HEADACHE, STILL 05/28 CALL TO ULYSSES TO UPDATE
[2023-03-11 19:34] LABS: Hematocrit 32.2 % (33.0-51.0); Hemoglobin 11.1 g/dL (11.5-16.0); Mean Corpuscular HGB 29.1 pg (26.0-34.0); Mean Corpuscular HGB Conc 34.5 g/dL (31.5-36.5); Mean Corpuscular Volume 85 fL (80-100); Mean Platelet Volume 11.2 fL (9.1-12.4); Platelet Count 225 K/mm3 (150-400); RDW Coefficient Variation 12.4 % (11.7-14.2); RDW Standard Deviation 37.6 fL (35.1-46.3); Red Blood Cell Count 3.81 M/mm3 (3.80-5.20); White Blood Cell Count 15.58 K/mm3 (4.00-11.30)
[2023-03-11 19:52] LABS: Albumin, Blood 2.2 g/dL (3.4-5.0); Albumin/Globulin Ratio 0.6 (0.8-1.8); Bilirubin, Total 0.1 mg/dL (0.1-1.0); Bun/Creatinine Ratio 12.5 (12.0-20.0); Calcium, Blood 8.4 mg/dL (8.5-10.1); Creatinine, Blood 0.64 mg/dL (0.40-1.00); Potassium, Blood 3.5 mmol/L (3.5-5.5); Total Protein, Blood 6.2 g/dL (6.4-8.2)
[2023-03-12] VITALS (8 sets, daily range): BP systolic 129–158; BP diastolic 65–86
--- NOTE | 2023-03-12 08:45 | NUR ---
attempting to restart IV attempted 3 times, icu here now for powerglide
--- NOTE | 2023-03-12 09:39 | NUR ---
POWERGLIDE STARTED BY ICU, MAGNESIUM AND LR RESTARTED
--- NOTE | 2023-03-12 11:55 | NUR ---
CALL TO INFUSION CLINIC CAN LEAVE POWERGLIDE IN PLACE FOR 30 DAYS WITH EVERY 7 DAYS DRESSING CHANGE, ORDER FAXED TO [facility] IN CLINIC AT [phone] WITH DIAGNOSIS CODE TO HAVE FIRST DRESSING CHANGE ON March. PATIENT EDUCATED ON POWERGLIDE, INFUSION CLINIC WILL CALL PATIENT TO SCHEDULE APPOINTMENTS,
--- NOTE | 2023-03-12 17:23 | NUR ---
patient feels slight headache tylenol given, feels safe to go home, instructions given, Ryann updated instructions to go home, powerglide left in and appointment made for infusion clinic on march 19 at 1330
[2023-03-12] MEDS ORDERED: ONDA4 PO (17:29)
== END 2023-03-12 17:30 | disposition home or self-care (01) | DRG 833 ==
LOC: OBS 17:08 → BC 17:08 → OBS 20:41 → BC 20:43
PROVIDERS: ADMIT Advanced Practice Midwife
DX: O11.3 Pre-existing hypertension with pre-eclampsia, third trimester (principal); Z3A.33 33 weeks gestation of pregnancy; Z86.718 Personal history of other venous thrombosis and embolism; Z98.890 Other specified postprocedural states; Z88.1 Allergy status to other antibiotic agents; Z88.0 Allergy status to penicillin; Z91.018 Allergy to other foods; Z79.899 Other long term (current) drug therapy
CPT/HCPCS: 36415; 59025; 80053; 81003; 82570; 84156; 85025; 85027; A9270; C1751; J0360; J1650; J2405; J2765; J3475; J7120

== ENCOUNTER 2023-09-12 17:21 | Emergency (ER) | payer OTHER, BC ==
[~2023-09-12] VITALS: Ht 170.2 cm; Wt 129.3 kg
[~2023-09-12 17:21] MED LIST changes: +ADALAT CC60 MG PO; +ONDA4 PO
[2023-09-12 17:28] VITALS: BP 171/101
[2023-09-12] MEDS ORDERED: CEPH500 PO (20:13)
== END 2023-09-12 20:20 | disposition home or self-care (01) ==
LOC: ER 17:21
DX: N61.0 Mastitis without abscess (principal); Z88.0 Allergy status to penicillin; Z88.1 Allergy status to other antibiotic agents; Z91.02 Food additives allergy status
CPT/HCPCS: 99283; A9270

== ENCOUNTER → 2023-10-01 | Outpatient (CLI) | payer OTHER, BC ==
[~2023-10-01] MED LIST changes: +CEPH500 PO
== END ==
LOC: LAB SHORT 14:43 → LAB 14:43
DX: O91.23 Nonpurulent mastitis associated with lactation (principal)
CPT/HCPCS: 87070; 87075; 87205